=== PATIENT | female | born 2000 | race Caucasian/White ===

== ENCOUNTER 2022-09-12 16:09 | Emergency (ER) | payer OTHER ==
--- NOTE | 2022-09-12 16:29 | ERPHSYRPT ---
- History of Present Illness Time Seen by Provider: 09/12/22 16:25 Source: patient Exam Limitations: no limitations Physician History: This is a 22-year-old white female who was sent to the hospital have some labs drawn. The patient's last menstrual period was approximately 1 month ago. Patient thinks she may be 4 to 6 weeks . Patient stated that she was hoping to have an ultrasound performed to see if "everything was okay with my baby". She will be seeing an director supply from an outside facility. Patient has no significant abdominal pain but 1 month ago she did have a passage of clots vaginally. Patient reports a quantitative hCG of approximately 890 relatively recently. Patient has no cough. She has no chest pain. She has no shortness of breath. She has no abdominal pain. She has had no vomiting or diarrhea. Timing/Duration: other Activites at Onset: none Severity of Pain-Max: none Severity of Pain-Current: none Prior abdominal problems: none Sexual intercourse history: non-contributory Modifying Factors: Improves With: nothing Associated Symptoms: denies symptoms Allergies/Adverse Reactions: sertraline [From Zoloft] Allergy (Verified 09/12/22 16:31) Home Medications: Bupropion HCl Xl 150 mg [Wellbutrin XL 150 MG] 300 mg PO DAILY 09/12/22 [History] Travel Risk - International Travel Have you traveled outside of the country in past 3 weeks: No - Coronavirus Screening Are you exhibiting any of the following symptoms?: No Close contact with a COVID-19 positive Pt in past 14-21 Days: No - Review of Systems Constitutional: No Symptoms Eyes: No Symptoms Ears, Nose, & Throat: No Symptoms Respiratory: No Symptoms Cardiac: No Symptoms Abdominal/Gastrointestinal: No Symptoms Genitourinary Symptoms: No Symptoms, Other (Patient stated that a month ago she passed some heavy clots but none since that time) Musculoskeletal: No Symptoms Skin: No Symptoms Neurological: No Symptoms Psychological: No Symptoms Endocrine: No Symptoms Hematologic/Lymphatic: No Symptoms Immunological/Allergic: No Symptoms All Other Systems: Reviewed and Negative - Past Medical History Pertinent Past Medical History: No - Past Surgical History Past Surgical History: No - Nursing Vital Signs Nursing Vital Signs: Initial Vital Signs Temperature 97.7 F 09/12/22 16:19 Pulse Rate 77 09/12/22 16:19 Blood Pressure 109/65 09/12/22 16:19 O2 Sat by Pulse Oximetry 99 09/12/22 16:19 Pain Scale Pain Intensity 6 - Physical Exam General Appearance: no apparent distress, alert, anxiety, obese Eye Exam: PERRL/EOMI, eyes nml inspection Ears, Nose, Throat Exam: normal ENT inspection, moist mucous membranes Neck Exam: normal inspection, non-tender, supple, full range of motion Respiratory Exam: normal breath sounds, lungs clear, airway intact, No chest tenderness, No respiratory distress Cardiovascular Exam: regular rate/rhythm, normal heart sounds, normal peripheral pulses Gastrointestinal/Abdomen Exam: soft, normal bowel sounds, No tenderness Pelvic Exam: not done Rectal Exam: not done Back Exam: normal inspection, normal range of motion, No CVA tenderness, No vertebral tenderness Extremity Exam: normal inspection, normal range of motion, pelvis stable Neurologic Exam: alert, oriented x 3, cooperative, 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 tested, normal mood/affect, nml cerebellar function, nml station & gait, sensation nml Skin Exam: normal color, warm, dry Lymphatic Exam: No adenopathy SpO2 Interpretation: normal O2 Delivery: Room Air - Course Nursing assessment & vital signs reviewed: Yes Ordered Tests: Active Orders 24 hr Category Date Time Status HCG,QUALITATIVE URINE Stat Lab 09/12/22 17:17 Completed UA W/RFX CULTURE Stat Lab 09/12/22 17:25 Results Lab/Rad Data: Laboratory Results 09/12/22 09/12/22 Range/Units 17:25 17:17 Urinalys Dipstick Clnc MAIN LAB Urine Color YELLOW (YELLOW) Urine Appearance CLEAR (CLEAR) Urine pH 5.5 (5-6) Ur Specific [place] >=1.030 A (1.005-1.025) POC Urine Protein Conf NEGATIVE (Negative) Urine Ketones NEGATIVE (NEGATIVE) Urine Nitrite NEGATIVE (NEGATIVE) Urine Bilirubin NEGATIVE (NEGATIVE) Urine Urobilinogen 0.2 (0-1) mg/dL Urine Leukocytes NEGATIVE (NEGATIVE) Urine WBC (Auto) Pending Urine RBC (Auto) Pending U Epithel Cells (Auto) Pending Urine Bacteria (Auto) Pending Urine RBC NEGATIVE (0-5) Og/ul Ur Culture Indicated? Pending Urine Glucose NEGATIVE (NEGATIVE) mg/dL Urine HCG, Qual POSITIVE (Negative) - Departure Departure Disposition: Home Clinical Impression: Condition: Stable Critical Care Time: No Referrals: SU ARIAS [Primary Care Provider] - Follow up/PCP as directed Additional Instructions: Follow-up with your director supply at your scheduled date and time.
[2022-09-12 18:08] VITALS: BP 115/63; PULSE 84; O2SAT 99
[2022-09-12 18:22] LABS: Epithelial Cells FEW /HPF (FEW); Mucus SLIGHT /HPF (NEGATIVE)
[2022-09-12 18:23] LABS: Appearance CLEAR (CLEAR); Bilirubin NEGATIVE (NEGATIVE); Dipstick done @ ? MAIN LAB; Glucose NEGATIVE (NEGATIVE); Ketones NEGATIVE (NEGATIVE); Nitrite NEGATIVE (NEGATIVE); Ph 5.5 (5-6); Protein,Urine Dip NEGATIVE (Negative); RBC NEGATIVE Ery/ul (0-5); Specific Gravity >=1.030 (1.005-1.025); Urobilinogen 0.2 mg/dL (0-1)
[2022-09-12 18:24] LABS: Urine Cultured Indicated? NO
== END 2022-09-12 18:33 | disposition home or self-care (01) ==
LOC: ED 16:09
DX: Z32.01 Encounter for pregnancy test, result positive (principal); Z79.899 Other long term (current) drug therapy
CPT/HCPCS: 81015; 81025; 99282

== ENCOUNTER 2024-12-19 12:58 | Emergency (ER) | payer OTHER ==
--- NOTE | 2024-12-19 13:00 | ERPHSYRPT ---
- History of Present Illness Time Seen by Provider: 12/19/24 12:59 Source: patient Exam Limitations: no limitations Physician History: This is a morbidly obese 24-year-old white female patient who presents to the emergency department secondary to fever at home, diarrhea and vomiting that began last evening on 12/18/2024. The vomiting persisted this morning and she vomited so many times and so forcefully that she passed out. Patient states that her autistic daughter, who is with her today has the same symptoms. Patient states she also has a cough. Patient has a history of depression Timing/Duration: yesterday Cough Quality/Degree: mild Possible Cause: no prior episodes Modifying Factors: Improves With: coughing Associated Symptoms: fever (Measured at home. No fever here today), cough, muscle aches Allergies/Adverse Reactions: sertraline [From Zoloft] Allergy (Verified 12/19/24 13:25) Hx Influenza Vaccination/Date Given: Yes Hx Pneumococcal Vaccination/Date Given: Yes Travel Risk - Emerging Infectious Disease Are you exhibiting symptoms associated with any current EIDs: Yes Symptoms: Cough: New Onset, Diarrhea, Fever, Vomitting - Review of Systems Constitutional: No Symptoms Eyes: No Symptoms Ears, Nose, & Throat: No Symptoms Respiratory: Cough Cardiac: No Symptoms Abdominal/Gastrointestinal: Nausea, Vomiting, Diarrhea, Appetite Changes Genitourinary Symptoms: No Symptoms Musculoskeletal: No Symptoms Skin: No Symptoms Neurological: No Symptoms Psychological: No Symptoms Endocrine: No Symptoms Hematologic/Lymphatic: No Symptoms Immunological/Allergic: No Symptoms All Other Systems: Reviewed and Negative - Past Medical History Pertinent Past Medical History: No - Past Surgical History Past Surgical History: No - Social History Smoking Status: Current every day smoker Exposure to second hand smoke: Yes Drug Use: none Patient Lives Alone: No - Nursing Vital Signs Nursing Vital Signs: Initial Vital Signs Temperature 97.8 F 12/19/24 13:36 Pulse Rate 112 H 12/19/24 13:36 Respiratory Rate 20 12/19/24 13:36 Blood Pressure 99/64 12/19/24 13:36 O2 Sat by Pulse Oximetry 98 12/19/24 13:36 Pain Scale Pain Intensity 7 - Physical Exam General Appearance: no apparent distress, alert, anxiety, obese Eye Exam: PERRL/EOMI, eyes nml inspection Ears, Nose, Throat Exam: normal ENT inspection, moist mucous membranes Neck Exam: normal inspection, non-tender, supple, full range of motion Respiratory Exam: normal breath sounds, lungs clear, airway intact, No chest tenderness, No respiratory distress Cardiovascular Exam: tachycardia Gastrointestinal/Abdomen Exam: soft, normal bowel sounds, No tenderness Pelvic Exam: not done Rectal Exam: not done Back Exam: normal inspection, normal range of motion, No CVA tenderness, No vertebral tenderness Extremity Exam: normal inspection, normal range of motion, pelvis stable Neurologic Exam: alert, oriented x 3, cooperative, 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-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 tested, nml cerebellar function, nml station & gait, sensation nml Skin Exam: normal color, warm, dry Lymphatic Exam: No adenopathy SpO2 Interpretation: normal O2 Delivery: Room Air - Course Nursing assessment & vital signs reviewed: Yes Ordered Tests: Active Orders 24 hr Category Date Time Status IV Insertion STAT Care 12/19/24 13:38 Active Pulse Oximetry (ED) STAT Care 12/19/24 13:38 Active ACO SDOH Referral ONCE Cons 12/19/24 13:36 Active CHEST 1 VIEW (PORTABLE) Stat Exams 12/19/24 13:39 Taken BLOOD CULTURE Stat Lab 12/19/24 13:55 Received CBC W DIFF Stat Lab 12/19/24 13:55 Completed CMP Stat Lab 12/19/24 13:55 Completed HCG QUALITATIVE, SERUM Stat Lab 12/19/24 13:55 Completed MONO SCREEN Stat Lab 12/19/24 13:55 Completed Medication Summary Discontinued Medications Generic Name Dose Route Start Last Admin Trade Name Freq PRN Reason Stop Dose Admin Sodium Chloride 1,000 mls @ 999 mls/hr 12/19/24 13:38 12/19/24 14:51 Sodium Chloride 0.9% 1000 Ml IV 12/19/24 14:38 999 mls/hr .Q1H1M STA Administration Sodium Chloride Confirm 12/19/24 13:48 Sodium Chloride 0.9% 1000 Ml Administered 12/19/24 13:49 Dose 1,000 mls @ ud .ROUTE .STK-MED ONE Ondansetron HCl 4 mg 12/19/24 13:38 12/19/24 14:22 Ondansetron Hcl 4 Mg/2 Ml Vial IV 12/19/24 13:39 4 mg STAT STA Administration Ondansetron HCl Confirm 12/19/24 13:48 Ondansetron Hcl 4 Mg/2 Ml Vial Administered 12/19/24 13:49 Dose 4 mg .ROUTE .STK-MED ONE Lab/Rad Data: Laboratory Result Diagrams 12/19/24 13:55 12/19/24 13:55 Laboratory Results 12/19/24 12/19/24 12/19/24 Range/Units 13:55 13:55 13:55 WBC (3.98-10.04) x10^3/uL RBC (3.93-5.22) x10^6/uL Hgb (11.2-15.7) g/dL Hct (34.1-44.9) % MCV (79.4-94.8) fL MCH (25.6-32.2) pg MCHC (32.2-35.5) g/dL RDW (11.7-14.4) % Plt Count (182-369) x10^3/uL MPV (9.4-12.3) fL Gran % (34.0-71.1) % Immature Gran % (Auto) (0.001-0.429) % Nucleat RBC Rel Count (0.00-0.2) % Eos # (Auto) (0.04-0.36) x10^3/uL Immature Gran # (Auto) (0.001-0.031) x10^3u/L Absolute Lymphs (auto) (1.18-3.74) x10^3/uL Absolute Monos (auto) (0.24-0.86) x10^3/uL Absolute Nucleated RBC (0.00-0.012) x10^3u/L Lymphocytes % (19.3-51.7) % Monocytes % (4.7-12.5) % Eosinophils % (0.7-5.8) % Basophils % (0.1-1.2) % Absolute Granulocytes (1.56-6.13) x10^3/uL Basophils # (0.01-0.08) x10^3/uL Sodium (135-145) mmol/L Potassium (3.5-5.1) mmol/L Chloride (98-107) mmol/L Carbon Dioxide (22-30) mmol/L Anion Gap (5-15) MEQ/L BUN (7-17) mg/dL Creatinine (0.52-1.04) mg/dL Estimated GFR ML/MIN Glucose (74-106) mg/dL Calcium (8.4-10.2) mg/dL Total Bilirubin (0.2-1.3) mg/dL AST (14-36) U/L ALT (0-35) U/L Alkaline Phosphatase (38-126) U/L Serum Total Protein (6.3-8.2) g/dL Albumin (3.5-5.0) g/dL Serum HCG, Qual NEGATIVE (NEGATIVE) Monoscreen NEGATIVE (NEGATIVE) Influenza Type A Ag NEGATIVE (NEGATIVE) Influenza Type B Ag NEGATIVE (NEGATIVE) RSV (PCR) NEGATIVE (NEGATIVE) SARS-CoV-2 (PCR) NEGATIVE (NEGATIVE) Group A Strep Antibody NOT DETECTED (NEGATIVE) 12/19/24 12/19/24 Range/Units 13:55 13:55 WBC 15.3 H (3.98-10.04) x10^3/uL RBC 5.30 H (3.93-5.22) x10^6/uL Hgb 13.7 (11.2-15.7) g/dL Hct 42.8 (34.1-44.9) % MCV 80.8 (79.4-94.8) fL MCH 25.8 (25.6-32.2) pg MCHC 32.0 L (32.2-35.5) g/dL RDW 14.5 H (11.7-14.4) % Plt Count 354 (182-369) x10^3/uL MPV 10.7 (9.4-12.3) fL Gran % 92.0 H (34.0-71.1) % Immature Gran % (Auto) 0.5 H (0.001-0.429) % Nucleat RBC Rel Count 0.0 (0.00-0.2) % Eos # (Auto) 0.01 L (0.04-0.36) x10^3/uL Immature Gran # (Auto) 0.07 H (0.001-0.031) x10^3u/L Absolute Lymphs (auto) 0.62 L (1.18-3.74) x10^3/uL Absolute Monos (auto) 0.49 (0.24-0.86) x10^3/uL Absolute Nucleated RBC 0.00 (0.00-0.012) x10^3u/L Lymphocytes % 4.1 L (19.3-51.7) % Monocytes % 3.2 L (4.7-12.5) % Eosinophils % 0.1 L (0.7-5.8) % Basophils % 0.1 (0.1-1.2) % Absolute Granulocytes 14.07 H (1.56-6.13) x10^3/uL Basophils # 0.02 (0.01-0.08) x10^3/uL Sodium 138 (135-145) mmol/L Potassium 4.2 (3.5-5.1) mmol/L Chloride 105 (98-107) mmol/L Carbon Dioxide 18 L (22-30) mmol/L Anion Gap 19.1 H (5-15) MEQ/L BUN 15 (7-17) mg/dL Creatinine 0.75 (0.52-1.04) mg/dL Estimated GFR 112.5 ML/MIN Glucose 107 H (74-106) mg/dL Calcium 8.9 (8.4-10.2) mg/dL Total Bilirubin 0.60 (0.2-1.3) mg/dL AST 53 H (14-36) U/L ALT 114 H (0-35) U/L Alkaline Phosphatase 142 H (38-126) U/L Serum Total Protein 8.6 H (6.3-8.2) g/dL Albumin 4.9 (3.5-5.0) g/dL Serum HCG, Qual (NEGATIVE) Monoscreen (NEGATIVE) Influenza Type A Ag (NEGATIVE) Influenza Type B Ag (NEGATIVE) RSV (PCR) (NEGATIVE) SARS-CoV-2 (PCR) (NEGATIVE) Group A Strep Antibody (NEGATIVE) - Progress Progress: improved, re-examined Air Movement: good Progress Note: 12/19/24 14:44 My medical decision making in the assignment of moderate complexity to this patient's medical issue today is based on review of the patient's past medical history, review of the patient's medication list, review the patient drug allergy list, history present illness and physical findings on examination. The workup in this patient includes placement of a intravenous line, infusion of crystalloid solution, infusion of Zofran, CBC, CMP, urinalysis, test, viral swabs and chest x-ray. The differential diagnosis includes was not limited to viral illness, , upper respiratory infection, pneumonia 12/19/24 15:25 I interpreted the patient's laboratory data results. Based on the laboratory data results, there is evidence of leukocytosis. This is most likely secondary to multiple episodes of vomiting. In addition she has a slightly elevated anion gap and slightly elevated transaminase levels. This is consistent with a viral syndrome. I interpreted the patient's preliminary chest x-ray report. I do not appreciate acute cardiopulmonary processes Blood Culture(s) Obtained: Yes Antibiotics given: No Counseled pt/family regarding: lab results, diagnosis, need for follow-up, rad results Medical Desision Making - Diagnostic Testing Diagnostic test were ordered, analyzed, and reviewed by me: Yes Radiological Interpretation: Interpreted by me, Teleradiologist Report - Risk of complications The pt has a mod risk of morbidity or mortality based on: Need for prescription drug management - Departure Departure Disposition: Home Clinical Impression: Viral syndrome, Leukocytosis, Vomiting Condition: Stable Critical Care Time: No Referrals: [facility] [employer] [Primary Care Provider] - Follow up/PCP as directed Additional Instructions: Drink plenty of clear liquids before advancing your diet. Avoid fatty greasy spicy foods. Call your primary care provider today, 12/19/2024 to make arrangements for follow-up appointment for further evaluation and management. Prescriptions: Ondansetron ODT 4 MG [Zofran Odt 4 mg] 4 mg PO Q6H PRN PRN #10 tablet PRN Reason: Vomiting
[2024-12-19 13:42] VITALS: BP 99/64; RESP 20; TEMP 97.8; O2SAT 98
[2024-12-19] MEDS ORDERED: Sodium Chloride 0.9% 1000 ML 1,000 ML ONE (13:48)
[2024-12-19] MEDS ORDERED: Zofran 4 MG/2 ML VIAL ONE (13:48)
[2024-12-19 14:07] LABS: Absolute Neutrophil Ct (ANC) 14.07 x10^3/uL (1.56-6.13); BASOPHIL % 0.1 % (0.1-1.2); Basophil (Absolute #) 0.02 x10^3/uL (0.01-0.08); Eosinophil % 0.1 % (0.7-5.8); Eosinophil (Absolute #) 0.01 x10^3/uL (0.04-0.36); Hematocrit 42.8 % (34.1-44.9); Hemoglobin 13.7 g/dL (11.2-15.7); IMMATURE GRAN # 0.07 x10^3u/L (0.001-0.031); IMMATURE GRAN % 0.5 % (0.001-0.429); Lymphocyte (Absolute #) 0.62 x10^3/uL (1.18-3.74); Lymphocytes % 4.1 % (19.3-51.7); Mean Cell Volume 80.8 fL (79.4-94.8); Mean Corpuscular Hemoglobin 25.8 pg (25.6-32.2); Mean Platelet Volume 10.7 fL (9.4-12.3); Monocyte (Absolute #) 0.49 x10^3/uL (0.24-0.86); Monocytes % 3.2 % (4.7-12.5); Platelet Count 354 x10^3/uL (182-369); Red Cell Distribution Width 14.5 % (11.7-14.4); White Blood Count 15.3 x10^3/uL (3.98-10.04)
[2024-12-19] MEDS: Zofran 4 MG/2 ML VIAL IV STA (14:22)
[2024-12-19 14:23] LABS: ALBUMIN 4.9 g/dL (3.5-5.0); ANION GAP 19.1 MEQ/L (5-15); BILIRUBIN,TOTAL 0.6 mg/dL (0.2-1.3); Calcium 8.9 mg/dL (8.4-10.2); Creatinine 1 0.75 mg/dL (0.52-1.04); EST GLOMERULAR FILTRATION RATE 112.5 ML/MIN; Potassium 4.2 mmol/L (3.5-5.1); Total Protein 8.6 g/dL (6.3-8.2)
[2024-12-19 14:25] LABS: HCG SERUM TEST NEGATIVE (NEGATIVE)
[2024-12-19 14:45] LABS: INFLUENZA A NEGATIVE (NEGATIVE); INFLUENZA B NEGATIVE (NEGATIVE); RESPIRATORY SYNCTIAL VIRUS NEGATIVE (NEGATIVE); SARS-CoV-2 Xpert Express NEGATIVE (NEGATIVE)
[2024-12-19] MEDS: Sodium Chloride 0.9% 1000 ML 1,000 ML IV STA (14:51)
--- NOTE | 2024-12-19 15:42 | XRAY ---
CLINICAL HISTORY: Cough COMPARISON: none. TECHNIQUE: X-ray images of the chest were obtained in anterior-posterior projection. FINDINGS: Pulmonary Parenchyma: bilateral lower lung zone haziness with no consolidation or collapse widening of the lower aspect of the azygos-oesophageal line for differential diagnosis No evidence of pleural effusion or pleural thickening. Heart and Mediastinum: Average size heart No mediastinal widening or masses. No hilar or mediastinal lymphadenopathy. Bony Thorax: The bony thorax appears intact without fractures or deformities. Soft Tissues: Soft tissues overlying the chest wall are unremarkable. IMPRESSION: 1. Bilateral lower lung zone diffuse haziness with no consolidation or collapse. 2. Widening of the lower aspect of the azygos-oesophageal line for differential diagnosis. Electronically Signed by: Antonio Allison MD. (12/19/2024 15:38:58 EST)
[2024-12-19 16:07] VITALS: PULSE 95
== END 2024-12-19 16:19 | disposition home or self-care (01) ==
LOC: ED 12:58
DX: B34.9 Viral infection, unspecified (principal); D72.829 Elevated white blood cell count, unspecified; R11.2 Nausea with vomiting, unspecified; R50.9 Fever, unspecified; R19.7 Diarrhea, unspecified; Z79.899 Other long term (current) drug therapy; Z72.0 Tobacco use; Z59.41 Food insecurity
CPT/HCPCS: 0241U; 36415; 71045; 80053; 84703; 85025; 86308; 87040; 87651; 94760; 96361; 96374; 99284; J2405